=== PATIENT | female | born 1975 | race African-American/Black ===

== ENCOUNTER 2017-10-31 12:52 | Emergency (ER) ==
[2017-10-31 12:55] VITALS: BP 130/76; TEMP 98.2; BMI 26.5
[2017-10-31] MEDS ORDERED: SOLU-MEDROL 125 MG IM STA (13:54)
[2017-10-31] MEDS ORDERED: CLARITIN PO STA (13:55)
--- NOTE | 2017-10-31 14:05 | ED.PDOC ---
General ED Provider: Dr. ANNA ABEL Chief Complaint: Rash Stated Complaint: Patient is a 42 year old female who comes to the ER with generalized itching since last week then today started devoling large welps throught the body. States it is itching. Denies any exposure to new soaps or detergent has not eaten any food or nuts. Nothing has changed in her enviroment. Time Seen by Physician: 13:50 Mode of Arrival: Walk-In Information Source: Patient Exam Limitations: No limitations [facility] T[facility] Documentation Reviewed and Agree: Yes Reviewed sepsis parameters & appropriate labs ordered?: No System Inflammatory Response Syndrome: Not Applicable Sepsis Protocol: For patient's 13 years and over: Temp is 96.8 and below OR 101 and greater Pulse >90 BPM Resp >20/minute Acutely Altered Mental Status Are patient's symptoms suggestive of a new infection, such as: -Pneumonia -Skin, Soft Tissue -Endocarditis -UTI -Bone, Joint Infection -Implantable Device -Acute Abdominal Infection -Wound Infection -Meningitis -Blood Stream Catheter Infection -Unknown System Inflammatory Response Syndrome: Not Applicable Review of Systems - Review Of Systems Constitutional: Reports: No symptoms Eyes: Reports: No symptoms Ears, Nose, Mouth, Throat: Reports: No symptoms Respiratory: Reports: No symptoms Cardiac: Reports: No symptoms GI: Reports: No symptoms : Reports: No symptoms Musculoskeletal: Reports: No symptoms Skin: Reports: Rash Neurological: Reports: Anxiety Endocrine: Reports: No symptoms Hematologic/Lymphatic: Reports: No symptoms All Other Systems: Reviewed and Negative Past Medical History - Past Medical History Previously Healthy: Yes Endocrine: Reports: None Cardiovascular: Reports: None Respiratory: Reports: Asthma Hematological: Reports: None Gastrointestinal: Reports: None Genitourinary: Reports: None Neuro/Psych: Reports: Anxiety, Depression Musculoskeletal: Reports: None Cancer: Reports: None Last Menstrual Period: 10/30/17 - Surgical History General Surgical History: Reports: Tubal ligation - Family History Family History: Reports: Unknown - Social History Smoking Status: Current every day smoker, Heavy tobacco smoker Hx Substance Use: No Alcohol Screening: None - Immunizations Tetanus Shot up to Date: No Physical Exam - Physical Exam Appearance: Well-appearing, No pain distress, Well-nourished Eyes: WINNIE, EOMI, Conjunctiva clear ENT: Ears normal, Nose normal, Oropharynx normal Neck: Supple Respiratory: Airway patent, Breath sounds clear, Breath sounds equal, Respirations nonlabored Cardiovascular: Pulses normal, No rub, No murmur, Tachycardia GI/: Soft, Nontender, No masses, Bowel sounds normal, No Organomegaly Musculoskeletal: Normal strength, ROM intact, No edema, No calf tenderness Skin: Warm, Dry Neurological: Sensation intact, Motor intact, Reflexes intact, Cranial nerves intact, Alert, Oriented Psychiatric: Anxious Re-Evaluation - Re-Evaluation Time of Re-Evaluation: 14:15 Status: Improved Skin: Other (rash better) Critical Care Note - Critical Care Note Total Time (mins): 0 Course - Course Orders, Labs, Meds: Orders Category Date Time Status Loratadine [Claritin] MEDS 10/31/17 13:55 Discontinued 10 mg PO ONCE STA Methylprednisolone Sod Succ/Pf [Solu-Medrol 125 mg] MEDS 10/31/17 13:54 Discontinued 125 mg IM ONCE STA Medications Discontinued Medications Generic Name Dose Route Start Last Admin Trade Name Freq PRN Reason Stop Dose Admin Loratadine 10 mg 10/31/17 13:55 10/31/17 14:02 Claritin PO 10/31/17 13:56 10 mg ONCE STA Administration Methylprednisolone Sodium Succinate 125 mg 10/31/17 13:54 10/31/17 14:01 Solu-Medrol 125 Mg IM 10/31/17 13:55 125 mg ONCE STA Administration Vital Signs: Temp Pulse Resp BP Pulse Ox 10/31/17 12:53 98.2 F 117 H 18 130/76 97 Departure - Departure Time of Disposition: 14:20 Disposition: HOME SELF-CARE Discharge Problem: Urticaria Instructions: Urticaria (ED) Condition: Stable Pt referred to PMD for follow-up: Yes IPMP verified?: No Additional Instructions: Take medications as prescribed You will be on Atarax so no need to take benaryl may take over the counter claritin or zyrtec as needed Follow up with PCP in 3 days Prescriptions: Hydroxyzine HCl [Atarax] 25 mg PO TID PRN #25 tablet PRN Reason: Allergy Symptoms Methylprednisolone [Medrol Dosepak] 4 mg PO DIRECTED #1 pkg Allergies/Adverse Reactions: Allergies venom-wasp [wasp venom] Allergy (Severe, Verified 10/31/17 12:57) hives, swelling Pt to get medical alert necklace Home Medications: Ambulatory Orders Acamprosate Calcium 333 mg PO tab-cap 06/11/17 Ergocalciferol (Vitamin D2) [Vitamin D2] 50,000 unit PO caplet 06/11/17 Escitalopram Oxalate 10 mg PO tab-cap 06/11/17 Folic Acid 1 mg PO 06/11/17 Thiamine HCl 100 mg PO 06/11/17 Trazodone HCl 50 mg PO 06/11/17 Hydroxyzine HCl [Atarax] 25 mg PO TID PRN #25 tablet 10/31/17 Methylprednisolone [Medrol Dosepak] 4 mg PO DIRECTED #1 pkg 10/31/17 Disposition Discussed With: Patient, Family
== END 2017-10-31 14:22 | disposition home or self-care (01) ==
LOC: ED 12:52
DX: L50.9 Urticaria, unspecified (principal)
CPT/HCPCS: 96372; 99282

== ENCOUNTER 2018-01-13 10:15 | Outpatient (CLI) ==
--- NOTE | 2018-01-13 11:15 | DI ---
EXAM: Two views of the left tibia and fibula. History: Left lower leg trauma. Findings: No acute fracture or dislocation. No abnormal calcifications or radiopaque foreign bodies . Joint spaces are preserved. Impression: Unremarkable exam
--- NOTE | 2018-01-13 11:16 | DI ---
Exam: Four views of the left knee. Comparison: None available. Reason for exam: Unspecified injury of lower leg. FINDINGS: No acute fracture or dislocation. The joint spaces appear well maintained. There is a sm all soft tissue ossification seen superior to the patella on the lateral view. Impression: 1. No acute fracture or dislocation in the left knee. 2. Soft tissue calcification superior to the patella likely degenerative. Clinical concern exists, further evaluation may be performed.
== END 2018-01-13 10:16 | disposition home or self-care (01) ==
LOC: RAD 10:15
PROVIDERS: ATTEND Nurse Practitioner Family
DX: S89.92XA Unspecified injury of left lower leg, initial encounter (principal); W19.XXXA Unspecified fall, initial encounter

== ENCOUNTER 2018-05-02 22:00 | Outpatient (CLI) ==
[2018-05-02 22:38] VITALS: BMI 23.8
== END 2018-05-02 22:16 | disposition short-term general hospital (02) ==
LOC: AMBL 22:00
PROVIDERS: ATTEND Family Medicine
DX: R07.9 Chest pain, unspecified (principal); M25.511 Pain in right shoulder; M25.551 Pain in right hip; F10.10 Alcohol abuse, uncomplicated

== ENCOUNTER 2018-05-02 22:28 | Emergency (ER) ==
[2018-05-02 22:38] VITALS: TEMP 98.2; BMI 23.8
[2018-05-02] MEDS ORDERED: SODIUM CHLORIDE 1,000 ML IV STA (22:47)
[2018-05-02] MEDS ORDERED: TORADOL IVP STA (22:47)
[2018-05-02 22:59] VITALS: BP 117/84
--- NOTE | 2018-05-03 00:53 | CT ---
EXAM: CT lumbar spine without intravenous contrast 05/03/2018. Sagittal and coronal reformatted maria e ges obtained HISTORY: Low back pain COMPARISON: 05/03/2018 FINDINGS: A normal lumbar lordosis is maintained. The vertebral bodies appear intact without fractu re. The facet joints align normally. Minimal degenerative endplate change. No fracture or subluxation at any level. Symmetric degenerative change of the right and left sacroiliac joint. Cyst in the posterior right pelvis likely arises from the right ovary. This measures up to 3 cm diam eter. IMPRESSION: 1. No acute osseous abnormality of the lumbar spine. 2. Cyst within the right pelvis likely arises from the right ovary.
--- NOTE | 2018-05-03 01:01 | CT ---
EXAM: CT abdomen pelvis without intravenous contrast 05/03/2018. Sagittal and coronal reformatted i mages obtained HISTORY: Back pain COMPARISON: 05/03/2018 FINDINGS: Bibasilar atelectasis. Hepatic steatosis. The liver, gallbladder, adrenal glands and kid neys show no acute abnormality. No urinary obstruction. The spleen and pancreas show no acute abnormality. There is no bowel obstruction. Normal appendix. Unremarkable urinary bladder. Cyst within the right posterior pelvis measures up to approximately 2.9 cm diameter. This arises fro m the right ovary. IMPRESSION: 1. Bibasilar atelectasis. 2. Hepatic steatosis. 3. No urinary or bowel obstruction. Normal appendix. 5. Right ovarian cyst measures up to 2.9 cm diameter. 6. Technically limited examination due to the lack of intravenous contrast.
--- NOTE | 2018-05-03 01:04 | CT ---
Exam: CT angiography of the chest History: Chest pain Technique: [address] of the chest utilizing CT angiography protocol. Multiplanar and max imum intensity projection reformations were performed. FINDINGS: Technically adequate for evaluation of pulmonary arteries and aorta. There are no pulmona ry artery filling defects. The lung windows show no infiltrative opacities, suspicious nodules or ma sses. The aorta is normal. No pathologic lymph node enlargement or abundance. No acute findings of the chest wall soft tissues or bony thorax. Probable left thyroid nodule. See abdominal CT for upper abdomen. Impression: 1. No evidence of pulmonary artery thrombus. No acute findings of the chest.
--- NOTE | 2018-05-03 01:07 | ED.PDOC ---
General ED Provider: Dr. CHRISTIANO KEATING-ER Chief Complaint: Shoulder Pain/Injury Stated Complaint: i hurt my chest when i moved some stuff Time Seen by Physician: 22:30 Mode of Arrival: Walk-In Information Source: Patient Exam Limitations: No limitations Primary Care Provider: POLO WOLF Nursing and Triage Documentation Reviewed and Agree: Yes Does patient meet sepsis criteria?: No System Inflammatory Response Syndrome: Not Applicable Sepsis Protocol: For patient's 13 years and over: Temp is 96.8 and below OR 101 and greater Pulse >90 BPM Resp >20/minute Acutely Altered Mental Status Are patient's symptoms suggestive of a new infection, such as: -Pneumonia -Skin, Soft Tissue -Endocarditis -UTI -Bone, Joint Infection -Implantable Device -Acute Abdominal Infection -Wound Infection -Meningitis -Blood Stream Catheter Infection -Unknown Musculoskeletal Complaint Exam - Shoulder Pain Complaint/Exam Mechanism of Injury: Reports: No known trauma Initial Severity: Mild Current Severity: Mild Character: Reports: Dull Alleviating: Reports: None Aggravating: Reports: None Associated Signs and Symptoms: Denies: Swelling, Redness, Bruising, Fever, Weakness, Numbness, Tingling Quality Indicator For Non-Traumatic Chest Pain/Syncope: EKG Performed Review of Systems - Review Of Systems Constitutional: Reports: No symptoms Eyes: Reports: No symptoms Ears, Nose, Mouth, Throat: Reports: No symptoms Respiratory: Reports: No symptoms Cardiac: Reports: Chest pain GI: Reports: No symptoms : Reports: No symptoms Musculoskeletal: Reports: No symptoms Skin: Reports: No symptoms Neurological: Reports: No symptoms Endocrine: Reports: No symptoms Hematologic/Lymphatic: Reports: No symptoms All Other Systems: Reviewed and Negative Past Medical History - Past Medical History Previously Healthy: Yes Endocrine: Reports: None Cardiovascular: Reports: None Respiratory: Reports: Asthma Hematological: Reports: None Gastrointestinal: Reports: None Genitourinary: Reports: None Neuro/Psych: Reports: Anxiety, Depression Musculoskeletal: Reports: None Cancer: Reports: None Last Menstrual Period: 04/25/18 - Surgical History General Surgical History: Reports: Tubal ligation - Family History Family History: Reports: Unknown - Social History Smoking Status: Current every day smoker, Heavy tobacco smoker Hx Substance Use: No Alcohol Screening: None - Immunizations Tetanus Shot up to Date: No Physical Exam - Physical Exam Appearance: Well-appearing, No pain distress, Well-nourished Eyes: WINNIE, EOMI, Conjunctiva clear ENT: Ears normal, Nose normal, Oropharynx normal Neck: Supple Respiratory: Airway patent Cardiovascular: RRR, Pulses normal, No rub, No murmur GI/: Soft, Nontender, No masses, Bowel sounds normal, No Organomegaly Musculoskeletal: Normal strength, ROM intact, No edema, No calf tenderness Skin: Warm, Dry, Normal color Neurological: Sensation intact, Motor intact, Reflexes intact, Cranial nerves intact, Alert, Oriented Psychiatric: Affect appropriate, Mood appropriate Interpretation - Radiology Interpretation Radiology Interpretation By: Radiologist Radiology Results: Negative Exam Interpreted: CT Scan - EKG Interpretation Time of EKG #1: 01:06 Rate: Normal Rhythm: Sinus Ectopy: None Winger: NL ST Segment: Normal Interpretation: nsr Critical Care Note - Critical Care Note Total Time (mins): 0 Course - Course Hematology/Chemistry: 05/02/18 22:51 05/02/18 22:51 Orders, Labs, Meds: Lab Review 05/02/18 05/02/18 05/02/18 22:43 22:51 22:51 WBC 6.47 RBC 4.55 Hgb 13.1 Hct 40.2 MCV 88.4 MCH 28.8 MCHC 32.6 RDW Coeff of Susanna 14.9 H Plt Count 159 Immature Gran % (Auto) 0.3 Neut % (Auto) 47.3 Lymph % (Auto) 38.3 [place] % (Auto) 11.4 H Eos % (Auto) 2.2 Baso % (Auto) 0.5 Immature Gran # (Auto) 0.0 Neut # (Auto) 3.1 Lymph # (Auto) 2.5 [place] # (Auto) 0.7 Eos # (Auto) 0.1 Baso # (Auto) 0.0 Puncture Site Rrad O2 Saturation 97.0 ABG pH 7.361 ABG pCO2 37.0 ABG pO2 90.0 ABG HCO3 21 L ABG Total CO2 22 ABG Base Excess -4 L Zohaib Test + FiO2 % 21.0 Sodium 145.6 H Potassium 3.69 Chloride 112.3 H Carbon Dioxide 25.0 Anion Gap 11.99 BUN 4.0 L Creatinine 0.69 Estimated GFR (MDRD) 113.00 BUN/Creatinine Ratio 5.79 Glucose 82.9 Calcium 9.09 Total Bilirubin 0.29 AST 126.4 H ALT 140.3 H Alkaline Phosphatase 94.2 Total Creatine Kinase 367.2 H CK-MB (CK-2) 1.470 CK-MB (CK-2) % 0.4000 Troponin I < 0.012 Total Protein 7.77 Albumin 4.30 Globulin 3.47 Albumin/Globulin Ratio 1.23 Amylase 113.2 H Lipase 163.3 TSH 0.926 Free T4 Serum , Qual Urine Opiates Screen Ur Oxycodone Screen Urine Methadone Screen Ur Propoxyphene Screen Ur Barbiturates Screen U Tricyclic Antidepress Ur Phencyclidine Scrn Ur Amphetamine Screen U Methamphetamines Scrn U Benzodiazepines Scrn Urine Cocaine Screen U Cannabinoids Screen Plasma/Serum Alcohol 271.8 H 05/02/18 05/02/18 05/02/18 22:51 22:51 22:55 WBC RBC Hgb Hct MCV MCH MCHC RDW Coeff of Susanna Plt Count Immature Gran % (Auto) Neut % (Auto) Lymph % (Auto) [place] % (Auto) Eos % (Auto) Baso % (Auto) Immature Gran # (Auto) Neut # (Auto) Lymph # (Auto) [place] # (Auto) Eos # (Auto) Baso # (Auto) Puncture Site O2 Saturation ABG pH ABG pCO2 ABG pO2 ABG HCO3 ABG Total CO2 ABG Base Excess Zohaib Test FiO2 % Sodium Potassium Chloride Carbon Dioxide Anion Gap BUN Creatinine Estimated GFR (MDRD) BUN/Creatinine Ratio Glucose Calcium Total Bilirubin AST ALT Alkaline Phosphatase Total Creatine Kinase CK-MB (CK-2) CK-MB (CK-2) % Troponin I Total Protein Albumin Globulin Albumin/Globulin Ratio Amylase Lipase TSH Free T4 1.09 Serum , Qual Negative Urine Opiates Screen Negative Ur Oxycodone Screen Negative Urine Methadone Screen Negative Ur Propoxyphene Screen Negative Ur Barbiturates Screen Negative U Tricyclic Antidepress Negative Ur Phencyclidine Scrn Negative Ur Amphetamine Screen Negative U Methamphetamines Scrn Negative U Benzodiazepines Scrn Negative Urine Cocaine Screen Negative U Cannabinoids Screen Negative Plasma/Serum Alcohol Orders Category Date Time Status ABG DRAW REQUEST Stat CARDIO 05/02/18 22:43 Completed EKG-(ED ONLY) Stat CARDIO 05/02/18 22:43 Completed NPO REMINDER: IMAGING ONCE CARE 05/02/18 22:46 Completed Technology Solutions Architect [ED SENIOR PORTFOLIO MANAGER APPLIED] .ONCE EMERGENCY 05/02/18 22:44 Active ED IV/MEDIPORT/POWERPORT .ONCE EMERGENCY 05/02/18 22:44 Active ABG Stat LAB 05/02/18 22:43 Completed AMYLASE Stat LAB 05/02/18 22:51 Completed BLOOD ALCOHOL Stat LAB 05/02/18 22:51 Completed CBC W/ AUTO DIFF Stat LAB 05/02/18 22:51 Completed COMPREHENSIVE METABOLIC PANEL Stat LAB 05/02/18 22:51 Completed CREATINE KINASE Stat LAB 05/02/18 22:51 Completed FREE T4 (FREE THYROXINE) Stat LAB 05/02/18 22:51 Completed LIPASE Stat LAB 05/02/18 22:51 Completed SERUM Stat LAB 05/02/18 22:51 Completed THYROID STIMULATING HORMONE Stat LAB 05/02/18 22:51 Completed TROPONIN I Stat LAB 05/02/18 22:51 Completed URINE DRUG SCREEN (RAPID FOR ED) [DRUG SCREEN, URINE, LAB 05/02/18 22:55 Completed RAPID] Stat 0.9 % Sodium Chloride [Saline Flush] MEDS 05/02/18 22:44 Ordered 1 syr IVF PRN PRN Ketorolac Tromethamine [Toradol] MEDS 05/02/18 22:47 Discontinued 30 mg IVP ONCE STA Sodium Chloride 0.9% [Sodium Chloride] 1,000 ml MEDS 05/02/18 22:47 Active IV 100 mls/hr CT ABDOMEN/PELVIS WO CONTRAST Stat RADS 05/03/18 00:[address] CHEST PE PROTOCOL Stat RADS 05/03/18 00:[address] LUMBAR SPINE W/O CONTRAST Stat RADS 05/03/18 00:01 Completed Medications Generic Name Dose Route Start Last Admin Trade Name Freq PRN Reason Stop Dose Admin Sodium Chloride 1,000 mls @ 100 mls/hr 05/02/18 22:47 05/02/18 23:08 Sodium Chloride IV 05/03/18 08:46 100 mls/hr .Q10H STA Administration Sodium Chloride 1 syr 05/02/18 22:44 Saline Flush IVF PRN PRN To flush IV Discontinued Medications Generic Name Dose Route Start Last Admin Trade Name Freq PRN Reason Stop Dose Admin Ketorolac Tromethamine 30 mg 05/02/18 22:47 05/02/18 23:08 Toradol IVP 05/02/18 22:48 30 mg ONCE STA Administration Vital Signs: Temp Pulse Resp BP Pulse Ox 05/02/18 22:59 117/84 05/02/18 22:29 98.2 F 82 18 132/92 H 98 Departure - Departure Time of Disposition: 01:07 Disposition: HOME SELF-CARE Discharge Problem: Anxiety, Intoxication Ovarian cyst Qualifiers: Laterality: unspecified laterality Qualified Code(s): N83.209 - Unspecified ovarian cyst, unspecified side Instructions: Anxiety (ED) Condition: Good Pt referred to PMD for follow-up: Yes IPMP verified?: Yes Additional Instructions: atarax 25mg qid prn anxiety#15--f/u with pcp regarding cyst on the ovary Allergies/Adverse Reactions: Allergies venom-wasp [wasp venom] Allergy (Severe, Verified 05/02/18 22:34) hives, swelling Pt to get medical alert necklace Home Medications: Ambulatory Orders Acamprosate Calcium 333 mg PO tab-cap 06/11/17 Ergocalciferol (Vitamin D2) [Vitamin D2] 50,000 unit PO caplet 06/11/17 Escitalopram Oxalate 10 mg PO tab-cap 06/11/17 Folic Acid 1 mg PO 06/11/17 Thiamine HCl 100 mg PO 06/11/17 Trazodone HCl 50 mg PO 06/11/17 Disposition Discussed With: Patient
== END 2018-05-03 01:25 | disposition home or self-care (01) ==
LOC: ED 22:28
DX: F41.9 Anxiety disorder, unspecified (principal); N83.209 Unspecified ovarian cyst, unspecified side; F10.129 Alcohol abuse with intoxication, unspecified; M25.519 Pain in unspecified shoulder; S29.9XXA Unspecified injury of thorax, initial encounter; X50.1XXA Overexertion from prolonged static or awkward postures, initial encounter; F17.210 Nicotine dependence, cigarettes, uncomplicated
CPT/HCPCS: 36415; 80053; 80306; 80307; 82150; 82550; 82553; 82803; 83690; 84439; 84443; 84484; 84703; 85025; 93005; 93010; 96360; 96361; 96374; 96375; 99284; 99285

== ENCOUNTER 2018-06-03 16:03 | Outpatient (CLI) ==
[2018-06-03 16:33] VITALS: BMI 24.3
== END 2018-06-03 16:04 | disposition home or self-care (01) ==
LOC: AMBL 16:03
PROVIDERS: ATTEND Internal Medicine
DX: R45.850 Homicidal ideations (principal)

== ENCOUNTER 2018-06-03 16:21 | Emergency (ER) ==
[2018-06-03 16:33] VITALS: BP 123/89; TEMP 97.6; BMI 24.3
--- NOTE | 2018-06-03 18:18 | ED.PDOC ---
General ED Provider: Dr. SOLEDAD TRINIDAD Chief Complaint: Psychiatric Complaint Stated Complaint: pt frustrated with [facility] for telling her her house is condemed and she must move out feels anxious Time Seen by Physician: 16:30 (denied suicidal ideation on arrival) Mode of Arrival: Ambulance Information Source: Patient, EMT Exam Limitations: No limitations Primary Care Provider: POLO WOLF Nursing and Triage Documentation Reviewed and Agree: Yes Does patient meet sepsis criteria?: No System Inflammatory Response Syndrome: Not Applicable Sepsis Protocol: For patient's 13 years and over: Temp is 96.8 and below OR 101 and greater Pulse >90 BPM Resp >20/minute Acutely Altered Mental Status Are patient's symptoms suggestive of a new infection, such as: -Pneumonia -Skin, Soft Tissue -Endocarditis -UTI -Bone, Joint Infection -Implantable Device -Acute Abdominal Infection -Wound Infection -Meningitis -Blood Stream Catheter Infection -Unknown Psychological Complaint Exam - Psychiatric Complaint/Exam Patient Complains Of: Present: Depression, Suicidal thoughts Onset/Duration: today Symptoms Are: Resolved Episodes Lasting: Minutes Initial Severity: Mild Current Severity: None Character: Present: Depressed, Fearful, Anxious, Frustrated Aggravating: Reports: Recent stress (home loss and loss of custody) Related History: Reports: Suicidal thoughts (was denied to MD ) Completed Suicide Risk Factors: None Patient Accompanied By: Family Patient In Custody Of Police: No Social Withdrawal Present: No Social Isolation Present: No Prior Suicide Attempt: No Injury From Prior Suicide Attempt: No Related Surgical History: Reports: None Patient Uncooperative For Exam: No Mood: Present: Anxious Appearance: Present: Clean Thought Process: Present: Logical Insight: Present: Good Memory: Intact Judgement: Normal Danger To Others: No Patient Medically Stable For: Psych evaluation Differential Diagnoses: Anxiety, Depression Review of Systems - Review Of Systems Constitutional: Reports: No symptoms Eyes: Reports: No symptoms Ears, Nose, Mouth, Throat: Reports: No symptoms Respiratory: Reports: No symptoms Cardiac: Reports: No symptoms GI: Reports: No symptoms : Reports: No symptoms Musculoskeletal: Reports: No symptoms Skin: Reports: No symptoms Neurological: Reports: Emotional problems Endocrine: Reports: No symptoms Hematologic/Lymphatic: Reports: No symptoms All Other Systems: Reviewed and Negative Past Medical History - Past Medical History Previously Healthy: Yes Endocrine: Reports: None Cardiovascular: Reports: None Respiratory: Reports: Asthma Hematological: Reports: None Gastrointestinal: Reports: None Genitourinary: Reports: None Neuro/Psych: Reports: Anxiety, Depression Musculoskeletal: Reports: None Cancer: Reports: None Last Menstrual Period: EARLY THIS MONTH - Surgical History General Surgical History: Reports: Tubal ligation - Family History Family History: Reports: Unknown - Social History Smoking Status: Current every day smoker, Heavy tobacco smoker Hx Substance Use: No Alcohol Screening: Heavy Physical Exam - Physical Exam Appearance: Well-appearing, No pain distress, Well-nourished Eyes: WINNIE, EOMI, Conjunctiva clear ENT: Ears normal, Nose normal, Oropharynx normal Respiratory: Airway patent, Breath sounds clear, Breath sounds equal, Respirations nonlabored Cardiovascular: RRR, Pulses normal, No rub, No murmur GI/: Soft, Nontender, No masses, Bowel sounds normal, No Organomegaly Musculoskeletal: Normal strength, ROM intact, No edema, No calf tenderness Skin: Warm, Dry, Normal color Neurological: Sensation intact, Motor intact, Reflexes intact, Cranial nerves intact, Alert, Oriented Psychiatric: Affect appropriate, Mood appropriate Critical Care Note - Critical Care Note Total Time (mins): 0 Course - Course Hematology/Chemistry: 06/03/18 17:51 06/03/18 17:51 Orders, Labs, Meds: Lab Review 06/03/18 06/03/18 06/03/18 17:51 17:51 17:51 WBC 6.46 RBC 4.83 Hgb 14.1 Hct 42.5 MCV 88.0 MCH 29.2 MCHC 33.2 RDW Coeff of Susanna 14.1 Plt Count 234 Immature Gran % (Auto) 0.3 Neut % (Auto) 54.6 Lymph % (Auto) 34.2 [place] % (Auto) 8.7 Eos % (Auto) 1.7 Baso % (Auto) 0.5 Immature Gran # (Auto) 0.0 Neut # (Auto) 3.5 Lymph # (Auto) 2.2 [place] # (Auto) 0.6 Eos # (Auto) 0.1 Baso # (Auto) 0.0 Sodium 142.7 Potassium 4.73 Chloride 104.8 Carbon Dioxide 30.8 H Anion Gap 11.83 BUN 4.9 L Creatinine 0.63 Estimated GFR (MDRD) 124.00 BUN/Creatinine Ratio 7.77 Glucose 88.7 Calcium 9.33 Total Bilirubin 0.34 AST 109.6 H ALT 91.1 H Alkaline Phosphatase 91.8 Total Protein 8.45 H Albumin 4.96 Globulin 3.49 Albumin/Globulin Ratio 1.42 Serum , Qual Negative Urine Color Urine Clarity Urine pH Ur Specific [place] Urine Protein Urine Glucose (UA) Urine Ketones Urine Blood Urine Nitrite Urine Bilirubin Urine Urobilinogen Ur Leukocyte Esterase Salicylate Level mg/dL < 1.00 Acetaminophen < 10.0 L Plasma/Serum Alcohol 278.8 H 06/03/18 17:51 WBC RBC Hgb Hct MCV MCH MCHC RDW Coeff of Susanna Plt Count Immature Gran % (Auto) Neut % (Auto) Lymph % (Auto) [place] % (Auto) Eos % (Auto) Baso % (Auto) Immature Gran # (Auto) Neut # (Auto) Lymph # (Auto) [place] # (Auto) Eos # (Auto) Baso # (Auto) Sodium Potassium Chloride Carbon Dioxide Anion Gap BUN Creatinine Estimated GFR (MDRD) BUN/Creatinine Ratio Glucose Calcium Total Bilirubin AST ALT Alkaline Phosphatase Total Protein Albumin Globulin Albumin/Globulin Ratio Serum , Qual Urine Color Yellow Urine Clarity Clear Urine pH 5.0 Ur Specific [place] <=1.005 Urine Protein Negative Urine Glucose (UA) Negative Urine Ketones Negative Urine Blood Negative Urine Nitrite Negative Urine Bilirubin Negative Urine Urobilinogen 0.2 Ur Leukocyte Esterase Negative Salicylate Level mg/dL Acetaminophen Plasma/Serum Alcohol Orders Category Date Time Status EKG-(ED ONLY) Stat CARDIO 06/03/18 17:39 Ordered ED ASSOCIATE PROFESSOR OF BIOLOGY APPLIED ONCE EMERGENCY 06/03/18 17:39 Active ACETAMINOPHEN Stat LAB 06/03/18 17:51 Completed BLOOD ALCOHOL Stat LAB 06/03/18 17:51 Completed CBC W/ AUTO DIFF Stat LAB 06/03/18 17:51 Completed COMPREHENSIVE METABOLIC PANEL Stat LAB 06/03/18 17:51 Completed DRUG SCREEN, URINE, RAPID Stat LAB 06/03/18 17:51 Received SALICYLATE Stat LAB 06/03/18 17:51 Completed SERUM Stat LAB 06/03/18 17:51 Completed URINALYSIS C & S IF INDICATED Stat LAB 06/03/18 17:51 Completed Vital Signs: Temp Pulse Resp BP Pulse Ox 06/03/18 16:22 97.6 F 109 H 16 123/89 98 Departure - Departure Time of Disposition: 18:19 Disposition: HOME SELF-CARE Discharge Problem: Anxiety Instructions: Anxiety (ED), Anxiolysis in Adults (ED), Depression (ED), Suicide Prevention (ED) Condition: Good Pt referred to PMD for follow-up: Yes IPMP verified?: No Additional Instructions: Please call your Family Physician as soon as possible to schedule a follow-up appointment. Allergies/Adverse Reactions: Allergies venom-wasp [wasp venom] Allergy (Severe, Verified 06/03/18 16:30) hives, swelling Pt to get medical alert necklace Home Medications: Ambulatory Orders Hydroxyzine HCl 25 mg PO QID PRN 06/03/18
== END 2018-06-03 18:28 | disposition home or self-care (01) ==
LOC: ED 16:21
DX: F41.9 Anxiety disorder, unspecified (principal); F32.9 Major depressive disorder, single episode, unspecified; F17.210 Nicotine dependence, cigarettes, uncomplicated
CPT/HCPCS: 36415; 80053; 80306; 80307; 81001; 84703; 85025; 99283

== ENCOUNTER 2018-08-26 11:07 | Outpatient (CLI) | END 2018-08-26 11:08 | disposition home or self-care (01) | LOC: RHC-LAB 11:07 | PROVIDERS: ATTEND Nurse Practitioner Family | DX: J02.9 Acute pharyngitis, unspecified (principal) | CPT/HCPCS: 36415; 80053; 80061; 87651 ==

== ENCOUNTER 2018-08-30 13:43 | Outpatient (CLI) ==
--- NOTE | 2018-08-31 08:41 | MAMMO ---
EXAM: Bilateral digital screening mammogram (2-D and 3-D) History: Screening Comparison: Bilateral mammogram 06/25/2017 Findings: MLO and CC views of bilateral breasts demonstrate scattered fibroglandular breast parenchy ma. CAD was reviewed by the radiologist. Tomosynthesis was performed. There are no dominant masses , no suspicious microcalcifications and no architectural distortions Impression: Stable negative mammogram. Recommend followup routine screening mammography in 1 year. BIRADS 1, negative
== END 2018-08-30 13:44 | disposition home or self-care (01) ==
LOC: RAD 13:43
PROVIDERS: ATTEND Nurse Practitioner Family
DX: Z12.31 Encounter for screening mammogram for malignant neoplasm of breast (principal)